=== PATIENT | male | born 1955 | race Caucasian/White ===

== ENCOUNTER 2018-05-21 18:08 | Emergency (ER) | payer OTHER, SELFPAY ==
[2018-05-21] VITALS (9 sets, daily range): BP systolic 113–132; BP diastolic 44–64; PULSE 75–83; RESP 14–21; TEMP 36.4–36.7; O2SAT 93–99; BMI 21.7
--- NOTE | 2018-05-21 18:39 | ED.WOUNDLAC ---
HPI - Wound/Laceration <JANNET Eldridge - Last Filed: 05/21/18 22:39> General Chief Complaint: Wound/Laceration Stated Complaint: States bone infection Time Seen by Provider: 05/21/18 18:14 Source: patient Mode of arrival: ambulatory Limitations: no limitations History of Present Illness HPI narrative: 63-year-old type 1 diabetic that is a nonsmoker here for complaint of a diabetic foot ulcer to his right foot. 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 He does have a foot ulcer to his right ball of foot medial aspect that has been healing well. He states that there is a new foot ulcer to his right foot to the lateral aspect started up few days ago and has worsened significantly over the past few days. He was sent here by his primary care provider for admission and IV antibiotics. He denies any fevers or chills. No trauma to the area. He does report decreased p.o. fluid intake today because he spent all day in bed. He denies any other concerns complaints at this time. Related Data Home Medications Medication Instructions Recorded Confirmed loratadine [Claritin] 10 mg PO QDAY #0 12/27/10 ASPIRIN (#ASPIRIN) 81 mg PO Q DAY #0 01/09/11 dorzolamide 1 drp OPHTH TID #0 02/15/17 Previous Rx's Medication Instructions Recorded FERROUS SULFATE (#IRON) 325 mg PO BID #180 10/04/11 Syringes: 3ml Luer-Nathalie Syringe 25g 0 syr #50 07/05/12 x 1 [ONETOUCH ULTRA TEST ] #200 06/05/16 albuterol sulfate [Proventil HFA] 2 puff INH Q4HP PRN #1 inh 07/19/16 verapamil 240 mg PO HS #90 tab 11/20/16 insulin glargine U-300 conc 0 u SC QDAY #3 u 12/26/16 [Toujeo SoloStar U-300 Insulin] fluticasone [Flonase Allergy 2 spray INTRANASAL QDAY #1 bot 01/03/17 Relief] quinapril 40 mg PO QDAY #90 tab 01/03/17 hydrochlorothiazide 12.5 mg PO QDAY #90 cap 01/16/17 sertraline [Zoloft] 100 mg PO QDAY #90 tab 01/16/17 azithromycin [Zithromax Z-Moses] 250 mg PO QDAY #6 tab 02/15/17 insulin lispro [Humalog U-100 0 unit SQ PRN #5 ml 03/09/17 Insulin] metformin 1,000 mg PO BIDCC #180 tabs 03/09/17 Allergies Allergy/AdvReac Type Severity Reaction Status Date / Time ciclopirox Allergy Mild RASH Verified 05/21/18 18:26 [From LOPROX ( OLAMINE)] travoprost [TRAVOPROST] Allergy Mild EYE Verified 05/21/18 18:26 IRRITATION Review of Systems <JANNET Eldridge - Last Filed: 05/21/18 22:39> Constitutional Denies chills, Denies fever(s), Denies lethargy and Denies weakness ENT Ears, Nose, Mouth, and Throat: Denies change in voice, Denies neck pain and Denies sore throat Cardiovascular Denies chest pain, Denies irregular heart rhythm, Denies lightheadedness, Denies palpitations, Denies dyspnea, Denies dyspnea on exertion and Denies orthopnea Respiratory Denies cough, Denies dyspnea, Denies dyspnea on exertion and Denies wheezing Gastrointestinal Gastrointestinal: Denies abdominal pain, Denies change in bowel habits, Denies diarrhea, Denies nausea and Denies vomiting Genitourinary Denies hematuria, Denies flank pain, Denies urinary incontinence and Denies urinary urgency Musculoskeletal Denies neck pain Comments: Right foot ulcer Integumentary/Breasts Denies pruritus, Denies erythema, Denies rash and Denies wounds Neurologic Denies confusion and Denies weakness Psychiatric Denies anxiety, Denies confusion, Denies depression, Denies homicidal ideation and Denies suicidal ideation Endocrine Denies palpitations Hematologic/Lymphatic Denies easy bruising Allergic/Immunologic Denies wheezing Exam <JANNET Eldridge - Last Filed: 05/21/18 22:39> Initial Vital Signs Initial Vital Signs: Vital Signs Temperature 97.5 F L 05/21/18 18:26 Pulse Rate 79 05/21/18 18:26 Respiratory Rate 16 05/21/18 18:26 Blood Pressure 119/64 05/21/18 18:26 Pulse Oximetry 99 05/21/18 18:26 Const General: cooperative and well developed Nutritional Appearance: well nourished Orientation: alert, awake, oriented x3 and not confused HENMT Mouth: oral mucosae normal and moist mucous membranes Eyes Conjunctivae: conjunctivae normal Sclera: sclerae normal Pupils: PERRL EOM: EOM intact bilaterally Resp Effort & Inspection: normal respiratory effort, able to speak in complete sentences, no respiratory distress and no use of accessory muscles Auscultation: clear to auscultation bilaterally, no rales, no rhonchi and no wheezes Cardio Rate: regular rate Rhythm: regular rhythm Heart Sounds: no click, no gallops, no murmurs and no rubs GI Inspection: non-distended Palpation: soft, no hepatosplenomegaly, No guarding, No pulsatile mass and No tender Auscultation: normal bowel sounds General: No CVA tenderness Skin General: no rashes or lesions noted, No jaundice and No petechiae Neuro General: alert, oriented x3, gait normal and no focal motor deficits Speech: speech normal Extrem Other: 3 cm foot ulcer to the medial aspect of the right foot on the ball does not appear to be acute and does appear to be healing well. 3 cm foot ulcer to the lateral aspect of the ball of foot to the right foot. Positive redness to the surrounding area. Decreased sensation to the distal right foot not new finding. Distal cap refill less than 2 sec. Distal pulses are intact. Full range of motion of the right foot. <Silvio Villegas DO - Last Filed: 05/22/18 01:24> Initial Vital Signs Initial Vital Signs: Vital Signs Temperature 97.5 F L 05/21/18 18:26 Pulse Rate 79 05/21/18 18:26 Respiratory Rate 16 05/21/18 18:26 Blood Pressure 119/64 05/21/18 18:26 Pulse Oximetry 99 05/21/18 18:26 Course <JANNET Eldridge - Last Filed: 05/21/18 22:39> Orders Ordered: ED Orders 05/21/18 19:02 XR foot RT min 3V Stat 05/21/18 19:25 Blood Culture Stat Complete Blood Count AUTO DIFF Stat Comprehensive Metabolic Panel Stat Lactate (Lactic Acid) Stat Procalcitonin Stat 05/21/18 20:13 Wound Culture and Gram Stain Stat 05/21/18 20:16 Arterial Blood Gas Stat EKG-12 Lead Stat 05/21/18 20:27 US abdomen complete Stat 05/21/18 22:40 Comprehensive Metabolic Panel Stat Lactate 4HR (Lactic Acid Rflx) Stat Lipase Stat 05/21/18 22:50 Urine Microscopic Stat Sodium Chloride (Normal Saline 0.9%) 177 mls @ 750 mls/hr IV BOLUS PRN PRN Reason: Fluid replacement Last Infusion: 05/21/18 23:57 Dose: 0 mls/hr Admin: 05/21/18 23:38 Dose: 750 mls/hr Sodium Chloride (Normal Saline 0.9%) 1,000 mls @ 125 mls/hr IV CONT SHERRY Last Admin: 05/22/18 00:36 Dose: 125 mls/hr Discontinued Medications Vancomycin HCl 1,750 mg/ (Sodium Chloride) 500 mls @ 333.333 mls/hr IV NOW ONE Stop: 05/21/18 20:02 Last Infusion: 05/21/18 22:15 Dose: 0 mls/hr Admin: 05/21/18 20:25 Dose: 333.333 mls/hr Sodium Chloride (Normal Saline 0.9%) 1,000 mls @ 1,000 mls/hr IV BOLUS ONE Stop: 05/21/18 21:15 Last Infusion: 05/21/18 22:00 Dose: 0 mls/hr Admin: 05/21/18 20:25 Dose: 1,000 mls/hr Sodium Chloride (Normal Saline 0.9%) 1,000 mls @ 1,000 mls/hr IV BOLUS ONE Stop: 05/21/18 22:30 Last Infusion: 05/21/18 23:03 Dose: 0 mls/hr Admin: 05/21/18 22:01 Dose: 1,000 mls/hr Sodium Chloride (Normal Saline 0.9%) 2,177.25 mls @ 725.75 mls/hr 30 ml/kg infuse over 3 hr (2177.25 ml) IV NOW ONE Stop: 05/22/18 00:35 Last Admin: 05/21/18 23:37 Dose: Ampicillin Sodium/Sulbactam (Sodium 3 gm/ Sodium Chloride) 100 mls @ 100 mls/hr IV NOW ONE Stop: 05/21/18 21:49 Last Infusion: 05/21/18 23:35 Dose: 0 mls/hr Admin: 05/21/18 22:30 Dose: 100 mls/hr Piperacillin/Tazobactam/Dextrose (Zosyn) 3.375 gm in 50 mls @ 100 mls/hr IV NOW ONE Stop: 05/22/18 00:36 Last Infusion: 05/22/18 01:03 Dose: 0 mls/hr Admin: 05/22/18 00:32 Dose: 100 mls/hr Insulin Human Regular (Humulin R) 7 unit IV NOW ONE Stop: 05/21/18 20:14 Last Admin: 05/21/18 22:14 Dose: Not Given Vital Signs - 8 hr 05/21/18 18:26 05/21/18 20:29 05/21/18 21:10 Temperature 97.5 F L Pulse Rate 79 83 83 Respiratory Rate 16 21 16 Blood Pressure 119/64 Blood Pressure [Left Arm] 122/44 L 129/46 L Pulse Oximetry 99 99 98 05/21/18 21:30 05/21/18 22:02 05/21/18 22:30 Temperature Pulse Rate 76 75 77 Respiratory Rate 14 16 14 Blood Pressure Blood Pressure [Left Arm] 132/53 L 113/58 L 132/50 L Pulse Oximetry 96 97 96 05/21/18 23:00 05/21/18 23:14 05/21/18 23:30 Temperature 98.0 F Pulse Rate 78 78 Respiratory Rate 17 15 Blood Pressure Blood Pressure [Left Arm] 132/45 L 125/44 L Pulse Oximetry 96 93 05/22/18 00:00 05/22/18 01:03 Temperature Pulse Rate 78 78 Respiratory Rate 12 14 Blood Pressure 124/50 L Blood Pressure [Left Arm] 120/49 L Pulse Oximetry 93 96 <Silvio Villegas, DO - Last Filed: 05/22/18 01:24> Orders Ordered: ED Orders 05/21/18 19:02 XR foot RT min 3V Stat 05/21/18 19:25 Blood Culture Stat Complete Blood Count AUTO DIFF Stat Comprehensive Metabolic Panel Stat Lactate (Lactic Acid) Stat Procalcitonin Stat 05/21/18 20:13 Wound Culture and Gram Stain Stat 05/21/18 20:16 Arterial Blood Gas Stat EKG-12 Lead Stat 05/21/18 20:27 US abdomen complete Stat 05/21/18 22:40 Comprehensive Metabolic Panel Stat Lactate 4HR (Lactic Acid Rflx) Stat Lipase Stat 05/21/18 22:50 Urine Microscopic Stat Sodium Chloride (Normal Saline 0.9%) 177 mls @ 750 mls/hr IV BOLUS PRN PRN Reason: Fluid replacement Last Infusion: 05/21/18 23:57 Dose: 0 mls/hr Admin: 05/21/18 23:38 Dose: 750 mls/hr Sodium Chloride (Normal Saline 0.9%) 1,000 mls @ 125 mls/hr IV CONT SHERRY Last Admin: 05/22/18 00:36 Dose: 125 mls/hr Discontinued Medications Vancomycin HCl 1,750 mg/ (Sodium Chloride) 500 mls @ 333.333 mls/hr IV NOW ONE Stop: 05/21/18 20:02 Last Infusion: 05/21/18 22:15 Dose: 0 mls/hr Admin: 05/21/18 20:25 Dose: 333.333 mls/hr Sodium Chloride (Normal Saline 0.9%) 1,000 mls @ 1,000 mls/hr IV BOLUS ONE Stop: 05/21/18 21:15 Last Infusion: 05/21/18 22:00 Dose: 0 mls/hr Admin: 05/21/18 20:25 Dose: 1,000 mls/hr Sodium Chloride (Normal Saline 0.9%) 1,000 mls @ 1,000 mls/hr IV BOLUS ONE Stop: 05/21/18 22:30 Last Infusion: 05/21/18 23:03 Dose: 0 mls/hr Admin: 05/21/18 22:01 Dose: 1,000 mls/hr Sodium Chloride (Normal Saline 0.9%) 2,177.25 mls @ 725.75 mls/hr 30 ml/kg infuse over 3 hr (2177.25 ml) IV NOW ONE Stop: 05/22/18 00:35 Last Admin: 05/21/18 23:37 Dose: Ampicillin Sodium/Sulbactam (Sodium 3 gm/ Sodium Chloride) 100 mls @ 100 mls/hr IV NOW ONE Stop: 05/21/18 21:49 Last Infusion: 05/21/18 23:35 Dose: 0 mls/hr Admin: 05/21/18 22:30 Dose: 100 mls/hr Piperacillin/Tazobactam/Dextrose (Zosyn) 3.375 gm in 50 mls @ 100 mls/hr IV NOW ONE Stop: 05/22/18 00:36 Last Infusion: 05/22/18 01:03 Dose: 0 mls/hr Admin: 05/22/18 00:32 Dose: 100 mls/hr Insulin Human Regular (Humulin R) 7 unit IV NOW ONE Stop: 05/21/18 20:14 Last Admin: 05/21/18 22:14 Dose: Not Given Reevaluation(s) Reevaluation #1: received in signout from CHEMA Copeland. Independent interview and exam by myself. Patient vitals remain stable. Hospitalist at our facility is not comfortable with keeping patient here given lack of access to GI. Initial calls for transfer are looking for an ICU with help of [facility] and no availability at [facility], [facility], [place], , [facility]. Patient turned over at this point. Patient received a few liters of fluid and antibiotics and repeat Lactate is markedly improved. Call back to [facility] whom state there is no bed available and that we can transfer wherever we find an appropriate bed, but they prefer [facility] or [facility]. Initial call is to [facility], but they are full. This is followed by call to [place]. Dr. Graves is happy to accept and recommends adding Zosyn. Vital Signs - 8 hr 05/21/18 18:26 05/21/18 20:29 05/21/18 21:10 Temperature 97.5 F L Pulse Rate 79 83 83 Respiratory Rate 16 21 16 Blood Pressure 119/64 Blood Pressure [Left Arm] 122/44 L 129/46 L Pulse Oximetry 99 99 98 05/21/18 21:30 05/21/18 22:02 05/21/18 22:30 Temperature Pulse Rate 76 75 77 Respiratory Rate 14 16 14 Blood Pressure Blood Pressure [Left Arm] 132/53 L 113/58 L 132/50 L Pulse Oximetry 96 97 96 05/21/18 23:00 05/21/18 23:14 05/21/18 23:30 Temperature 98.0 F Pulse Rate 78 78 Respiratory Rate 17 15 Blood Pressure Blood Pressure [Left Arm] 132/45 L 125/44 L Pulse Oximetry 96 93 05/22/18 00:00 05/22/18 01:03 Temperature Pulse Rate 78 78 Respiratory Rate 12 14 Blood Pressure 124/50 L Blood Pressure [Left Arm] 120/49 L Pulse Oximetry 93 96 MDM - Wound/Laceration <JANNET Eldridge - Last Filed: 05/21/18 22:39> Lab Data Result diagrams: 05/21/18 19:25 05/21/18 22:40 Lab Results 05/21/18 05/21/18 05/21/18 Range/Units 19:25 19:25 19:25 WBC 13.7 H (4.5-11.0) X10^3/uL RBC 3.56 L (4.5-5.9) X10^6/uL Hgb 10.6 L (13.5-17.5) g/dL Hct 32.5 L (41-53) % MCV 91.3 (80-100) fL MCH 29.7 (26-34) PG MCHC 32.5 (30-36) % RDW 15.0 H (11.6-14.8) % Plt Count 420 H (150-400) X10^3/uL Neut % (Auto) 92.0 H (50-75) % Lymph % (Auto) 5.4 L (25-40) % [place] % (Auto) 2.4 L (3-14) % Eos % (Auto) 0.0 L (2-4) % Baso % (Auto) 0.2 (0-2) % Neut # (Auto) 58326 H (2982-6369) /uL ABG pH (7.35-7.45) ABG pCO2 (35-45) mmHg ABG pO2 (80-100) mmHg ABG HCO3 (22-26) mmol/L ABG Total CO2 (21-31) mmol/L ABG O2 Saturation (95-100) % ABG Base Excess (-2-2) mmol/L FiO2 Sodium (137-145) mmol/L Potassium (3.4-5.1) mmol/L Chloride (98-107) mmol/L Carbon Dioxide (22-32) mmol/L BUN (9-20) mg/dL Creatinine (0.66-1.25) mg/dL Estimated GFR (>60) mL/min BUN/Creatinine Ratio (6-22) Glucose (80-110) mg/dL Lactate 5.4 H (0.7-2.1) mmol/L Calcium (8.4-10.2) mg/dL Total Bilirubin (0.2-1.3) mg/dL AST (17-59) IU/L ALT (21-72) IU/L Alkaline Phosphatase (38-126) U/L Total Protein (6.3-8.2) g/dL Albumin (3.5-5.0) g/dL Globulin (1.7-4.1) g/dL Albumin/Globulin Ratio (1.0-2.8) Lipase (23-300) U/L Procalcitonin 5.18 H (<0.5) ng/mL Urine RBC (0-5/HPF) Urine WBC (0-5/HPF) Amorphous Sediment Urine Bacteria (None) Hyaline Casts (None) Ur Culture Indicated? Micro UA Comment 05/21/18 05/21/18 05/21/18 Range/Units 19:25 20:16 22:40 WBC (4.5-11.0) X10^3/uL RBC (4.5-5.9) X10^6/uL Hgb (13.5-17.5) g/dL Hct (41-53) % MCV (80-100) fL MCH (26-34) PG MCHC (30-36) % RDW (11.6-14.8) % Plt Count (150-400) X10^3/uL Neut % (Auto) (50-75) % Lymph % (Auto) (25-40) % [place] % (Auto) (3-14) % Eos % (Auto) (2-4) % Baso % (Auto) (0-2) % Neut # (Auto) (9348-9157) /uL ABG pH 7.45 (7.35-7.45) ABG pCO2 30.1 L (35-45) mmHg ABG pO2 82 (80-100) mmHg ABG HCO3 21 L (22-26) mmol/L ABG Total CO2 22 (21-31) mmol/L ABG O2 Saturation 97 (95-100) % ABG Base Excess -3.0 L (-2-2) mmol/L FiO2 21 Sodium 130 L 132 L (137-145) mmol/L Potassium 6.1 H 5.4 H (3.4-5.1) mmol/L Chloride 91 L 97 L (98-107) mmol/L Carbon Dioxide 22 24 (22-32) mmol/L BUN 34 H 32 H (9-20) mg/dL Creatinine 1.80 H 1.50 H (0.66-1.25) mg/dL Estimated GFR 38.6 L 47.6 L (>60) mL/min BUN/Creatinine Ratio 18.9 21.3 (6-22) Glucose 394 H 223 H D (80-110) mg/dL Lactate (0.7-2.1) mmol/L Calcium 10.0 9.0 (8.4-10.2) mg/dL Total Bilirubin 0.4 0.2 (0.2-1.3) mg/dL AST 2185 H 1758 H (17-59) IU/L ALT 796 H 671 H (21-72) IU/L Alkaline Phosphatase 387 H 334 H (38-126) U/L Total Protein 7.1 6.4 (6.3-8.2) g/dL Albumin 3.9 3.4 L (3.5-5.0) g/dL Globulin 3.2 3.0 (1.7-4.1) g/dL Albumin/Globulin Ratio 1.2 1.1 (1.0-2.8) Lipase (23-300) U/L Procalcitonin (<0.5) ng/mL Urine RBC (0-5/HPF) Urine WBC (0-5/HPF) Amorphous Sediment Urine Bacteria (None) Hyaline Casts (None) Ur Culture Indicated? Micro UA Comment 05/21/18 05/21/18 05/21/18 Range/Units 22:40 22:40 22:50 WBC (4.5-11.0) X10^3/uL RBC (4.5-5.9) X10^6/uL Hgb (13.5-17.5) g/dL Hct (41-53) % MCV (80-100) fL MCH (26-34) PG MCHC (30-36) % RDW (11.6-14.8) % Plt Count (150-400) X10^3/uL Neut % (Auto) (50-75) % Lymph % (Auto) (25-40) % [place] % (Auto) (3-14) % Eos % (Auto) (2-4) % Baso % (Auto) (0-2) % Neut # (Auto) (8620-4541) /uL ABG pH (7.35-7.45) ABG pCO2 (35-45) mmHg ABG pO2 (80-100) mmHg ABG HCO3 (22-26) mmol/L ABG Total CO2 (21-31) mmol/L ABG O2 Saturation (95-100) % ABG Base Excess (-2-2) mmol/L FiO2 Sodium (137-145) mmol/L Potassium (3.4-5.1) mmol/L Chloride (98-107) mmol/L Carbon Dioxide (22-32) mmol/L BUN (9-20) mg/dL Creatinine (0.66-1.25) mg/dL Estimated GFR (>60) mL/min BUN/Creatinine Ratio (6-22) Glucose (80-110) mg/dL Lactate 2.4 H (0.7-2.1) mmol/L Calcium (8.4-10.2) mg/dL Total Bilirubin (0.2-1.3) mg/dL AST (17-59) IU/L ALT (21-72) IU/L Alkaline Phosphatase (38-126) U/L Total Protein (6.3-8.2) g/dL Albumin (3.5-5.0) g/dL Globulin (1.7-4.1) g/dL Albumin/Globulin Ratio (1.0-2.8) Lipase 848 H (23-300) U/L Procalcitonin (<0.5) ng/mL Urine RBC None seen (0-5/HPF) Urine WBC None seen (0-5/HPF) Amorphous Sediment 1+ Urine Bacteria None seen (None) Hyaline Casts 0-1/lpf (None) Ur Culture Indicated? Cult not indicated Micro UA Comment Not Reportable Imaging Data Right foot : Radiologist's impression: [address] [place] [id number] XRay Report Signed Patient: Ming Parry MMR#: [id number] : 7Acct:[id number] Age/Sex: 63 / MDate of Service: 05/21/18 Loc: ED Accession Number: [id number] Procedure: XR foot RT min 3V Ordering Provider: Wayne Copeland PROCEDURE: XR FOOT RT MIN 3V INDICATIONS: Diabetic ulcers to the lateral and medial aspect ball R foot TECHNIQUE: 3 views of the foot were acquired. COMPARISON: [facility], CR, FOOT 3V LEFT, 09/19/2016, 10:04. FINDINGS: Bones: Osteoarthritic changes throughout focal joints are seen. No acute fracture or dislocation. Cortical irregularity involving the lateral aspect of fifth proximal phalangeal base is seen suspicious for osteomyelitis in this area. Well-corticated cortical defect involving lateral aspect of the second metatarsal head is seen most likely represent chronic erosion and is unlikely to represent acute osteomyelitis. No suspicious bony lesions. Soft tissues: Ulceration overlying plantar and lateral aspect of fifth MTP joint is seen. No tibiotalar joint effusion. Achilles tendon appears normal. IMPRESSION: Ulceration over lateral and plantar aspect of fifth MTP joint with cortical irregularity involving fifth proximal phalangeal base suggestive of osteomyelitis in this area. Chronic appearing erosive changes involving lateral aspect of second metatarsal head. Forefoot joint osteoarthritis. Dictated by: John Martinez M.D. on 05/21/2018 at 19:37 Approved by: John Martinez M.D. on 05/21/2018 at 19:41 US - abdomen: Radiologist's impression: [place] [address] Ultrasound Report Signed Patient: Ming Parry [facility]#: [id number] : 7Acct:[id number] Age/Sex: 63 / MDate of Service: 05/21/18 Loc: ED Accession Number: [id number] Procedure: US abdomen complete Ordering Provider: Wayne Copeland PROCEDURE: US ABDOMEN COMPLETE INDICATIONS: ELEVATED LIVER ENZYMES TECHNIQUE: Real-time scanning was performed of the abdominal and retroperitoneal organs, with image documentation. COMPARISON: None. FINDINGS: Liver: Liver measures 19.7 cm seen length and is homogeneous in echotexture. Gallbladder: No gallstone is seen. No gross sonographic Cohen sign. Thickened gallbladder wall measures 5.1 mm in thickness. Pericholecystic fluid is also noted. Biliary ducts: Intrahepatic bile ducts are non-dilated. Extrahepatic bile duct caliber measures 4.2 mm. Normal is 6-7 mm or less in diameter, or 10 mm or less post-cholecystectomy. Pancreas: Visualized portions of the pancreas are sonographically normal. Spleen: Spleen is normal in size and homogeneous in echotexture. Kidneys: Kidneys are normal in size and echotexture. Right kidney measures 11.8 cm long; left kidney measures 11.4 cm long. No hydronephrosis or nephrolithiasis. No solid masses. Aorta: Visualized aorta is normal in caliber at less than 3 cm. Iliacs: Proximal common iliac arteries are normal in caliber at less than 2.5 cm. IVC: Intrahepatic inferior vena cava is patent. Miscellaneous: No free abdominal fluid. IMPRESSION: 1. Mild gallbladder wall thickening with pericholecystic fluid. No definite sonographic Cohen sign is seen. No gallstone or sludge material is noted. Finding could represent acalculus cholecystitis. 2. Mild hepatomegaly. No discrete hepatic lesion. No biliary ductal dilatation. Normal liver parenchymal echotexture. Dictated by: John Martinez M.D. on 05/21/2018 at 21:08 Approved by: John Martinez M.D. on 05/21/2018 at 21:10 ECG Data Interpretation: EKG shows normal sinus rhythm with heart block. No ST elevation or depression. No ectopy. Ventricular rate is 72. QRS duration 96. QTC of 438 MDM Narrative Medical decision making narrative: X-ray the right foot was obtained and shows findings concerning for starting osteomyelitis. Culture of the ulcer to the right foot was obtained and is pending. Blood cultures were obtained and are pending. CBC shows elevated white count and neutrophils. Chem panel shows hyperkalemia at 6.1. Sodium at 1:30 a.m. chloride at 91. Also shows a elevated creatinine of 1.8 and GFR 38.6. Glucose was 394. Procalcitonin was elevated At 5.18 lactic acid was elevated at 5.4. Patient did not have any complaint of abdominal pain. Patient was reassessed about abdominal pain and he states he did have abdominal pain earlier today but after he had a bowel movement his abdominal pain was resolved he states that the dominant pain was to the lower abdomen. Ultrasound of the right upper quadrant was obtained and shows findings consistent with acalculous cholecystitis with normal common bile duct. He was started on vancomycin and also Unasyn. Blood cultures and wound culture is pending. ABG was obtained shows his pH at 7.452. DKA is not appreciated at this time. He was given insulin in the emergency room. His blood sugar dropped to to 250. He was given a 30 mL/kilogram of fluid bolus. [facility] a billing him they did not have beds available. Currently awaiting a call from a [facility] bed. Due to change of shift patient was turned over to Dr. Villegas <Silvio Villegas, DO - Last Filed: 05/22/18 01:24> Lab Data Lab Results 05/21/18 05/21/18 05/21/18 Range/Units 19:25 19:25 19:25 WBC 13.7 H (4.5-11.0) X10^3/uL RBC 3.56 L (4.5-5.9) X10^6/uL Hgb 10.6 L (13.5-17.5) g/dL Hct 32.5 L (41-53) % MCV 91.3 (80-100) fL MCH 29.7 (26-34) PG MCHC 32.5 (30-36) % RDW 15.0 H (11.6-14.8) % Plt Count 420 H (150-400) X10^3/uL Neut % (Auto) 92.0 H (50-75) % Lymph % (Auto) 5.4 L (25-40) % [place] % (Auto) 2.4 L (3-14) % Eos % (Auto) 0.0 L (2-4) % Baso % (Auto) 0.2 (0-2) % Neut # (Auto) 73336 H (2919-2889) /uL ABG pH (7.35-7.45) ABG pCO2 (35-45) mmHg ABG pO2 (80-100) mmHg ABG HCO3 (22-26) mmol/L ABG Total CO2 (21-31) mmol/L ABG O2 Saturation (95-100) % ABG Base Excess (-2-2) mmol/L FiO2 Sodium (137-145) mmol/L Potassium (3.4-5.1) mmol/L Chloride (98-107) mmol/L Carbon Dioxide (22-32) mmol/L BUN (9-20) mg/dL Creatinine (0.66-1.25) mg/dL Estimated GFR (>60) mL/min BUN/Creatinine Ratio (6-22) Glucose (80-110) mg/dL Lactate 5.4 H (0.7-2.1) mmol/L Calcium (8.4-10.2) mg/dL Total Bilirubin (0.2-1.3) mg/dL AST (17-59) IU/L ALT (21-72) IU/L Alkaline Phosphatase (38-126) U/L Total Protein (6.3-8.2) g/dL Albumin (3.5-5.0) g/dL Globulin (1.7-4.1) g/dL Albumin/Globulin Ratio (1.0-2.8) Lipase (23-300) U/L Procalcitonin 5.18 H (<0.5) ng/mL Urine RBC (0-5/HPF) Urine WBC (0-5/HPF) Amorphous Sediment Urine Bacteria (None) Hyaline Casts (None) Ur Culture Indicated? Micro UA Comment 05/21/18 05/21/18 05/21/18 Range/Units 19:25 20:16 22:40 WBC (4.5-11.0) X10^3/uL RBC (4.5-5.9) X10^6/uL Hgb (13.5-17.5) g/dL Hct (41-53) % MCV (80-100) fL MCH (26-34) PG MCHC (30-36) % RDW (11.6-14.8) % Plt Count (150-400) X10^3/uL Neut % (Auto) (50-75) % Lymph % (Auto) (25-40) % [place] % (Auto) (3-14) % Eos % (Auto) (2-4) % Baso % (Auto) (0-2) % Neut # (Auto) (4586-4933) /uL ABG pH 7.45 (7.35-7.45) ABG pCO2 30.1 L (35-45) mmHg ABG pO2 82 (80-100) mmHg ABG HCO3 21 L (22-26) mmol/L ABG Total CO2 22 (21-31) mmol/L ABG O2 Saturation 97 (95-100) % ABG Base Excess -3.0 L (-2-2) mmol/L FiO2 21 Sodium 130 L 132 L (137-145) mmol/L Potassium 6.1 H 5.4 H (3.4-5.1) mmol/L Chloride 91 L 97 L (98-107) mmol/L Carbon Dioxide 22 24 (22-32) mmol/L BUN 34 H 32 H (9-20) mg/dL Creatinine 1.80 H 1.50 H (0.66-1.25) mg/dL Estimated GFR 38.6 L 47.6 L (>60) mL/min BUN/Creatinine Ratio 18.9 21.3 (6-22) Glucose 394 H 223 H D (80-110) mg/dL Lactate (0.7-2.1) mmol/L Calcium 10.0 9.0 (8.4-10.2) mg/dL Total Bilirubin 0.4 0.2 (0.2-1.3) mg/dL AST 2185 H 1758 H (17-59) IU/L ALT 796 H 671 H (21-72) IU/L Alkaline Phosphatase 387 H 334 H (38-126) U/L Total Protein 7.1 6.4 (6.3-8.2) g/dL Albumin 3.9 3.4 L (3.5-5.0) g/dL Globulin 3.2 3.0 (1.7-4.1) g/dL Albumin/Globulin Ratio 1.2 1.1 (1.0-2.8) Lipase (23-300) U/L Procalcitonin (<0.5) ng/mL Urine RBC (0-5/HPF) Urine WBC (0-5/HPF) Amorphous Sediment Urine Bacteria (None) Hyaline Casts (None) Ur Culture Indicated? Micro UA Comment 05/21/18 05/21/18 05/21/18 Range/Units 22:40 22:40 22:50 WBC (4.5-11.0) X10^3/uL RBC (4.5-5.9) X10^6/uL Hgb (13.5-17.5) g/dL Hct (41-53) % MCV (80-100) fL MCH (26-34) PG MCHC (30-36) % RDW (11.6-14.8) % Plt Count (150-400) X10^3/uL Neut % (Auto) (50-75) % Lymph % (Auto) (25-40) % [place] % (Auto) (3-14) % Eos % (Auto) (2-4) % Baso % (Auto) (0-2) % Neut # (Auto) (3666-7716) /uL ABG pH (7.35-7.45) ABG pCO2 (35-45) mmHg ABG pO2 (80-100) mmHg ABG HCO3 (22-26) mmol/L ABG Total CO2 (21-31) mmol/L ABG O2 Saturation (95-100) % ABG Base Excess (-2-2) mmol/L FiO2 Sodium (137-145) mmol/L Potassium (3.4-5.1) mmol/L Chloride (98-107) mmol/L Carbon Dioxide (22-32) mmol/L BUN (9-20) mg/dL Creatinine (0.66-1.25) mg/dL Estimated GFR (>60) mL/min BUN/Creatinine Ratio (6-22) Glucose (80-110) mg/dL Lactate 2.4 H (0.7-2.1) mmol/L Calcium (8.4-10.2) mg/dL Total Bilirubin (0.2-1.3) mg/dL AST (17-59) IU/L ALT (21-72) IU/L Alkaline Phosphatase (38-126) U/L Total Protein (6.3-8.2) g/dL Albumin (3.5-5.0) g/dL Globulin (1.7-4.1) g/dL Albumin/Globulin Ratio (1.0-2.8) Lipase 848 H (23-300) U/L Procalcitonin (<0.5) ng/mL Urine RBC None seen (0-5/HPF) Urine WBC None seen (0-5/HPF) Amorphous Sediment 1+ Urine Bacteria None seen (None) Hyaline Casts 0-1/lpf (None) Ur Culture Indicated? Cult not indicated Micro UA Comment Not Reportable Discharge Plan Departure Patient Disposition: [facility] Clinical Impression: Acute acalculous cholecystitis, Diabetic foot ulcer, Osteomyelitis Interventions: ED Discharge Assessment Last Done: 05/22/18 01:03 Prescriptions: No Action loratadine [Claritin] 10 MG tablet 10 mg PO QDAY Qty: 0 RF: 0 ASPIRIN (#ASPIRIN) 81 mg PO Q DAY Qty: 0 RF: 0 FERROUS SULFATE (#IRON) 325 mg PO BID Qty: 180 RF: 1 Syringes: 3ml Luer-Nathalie Syringe 25g x 1 Qty: 50 RF: 0 [[email or web address] ULTRA TEST ] Qty: 200 RF: 1 albuterol sulfate [Proventil HFA] 90 MCG/PUFF HFA aerosol inhaler 2 puff INH Q4HP PRNQty: 1 RF: 2 verapamil 240 MG tablet extended release 240 mg PO HS Qty: 90 RF: 1 insulin glargine U-300 conc [Toujeo SoloStar U-300 Insulin] 300 UNIT/1 ML insulin pen SC QDAY Qty: 3 RF: 2 quinapril 40 MG tablet 40 mg PO QDAY Qty: 90 RF: 0 fluticasone [Flonase Allergy Relief] 9.9 ML spray,suspension 2 spray Intranasal QDAY Qty: 1 RF: 2 sertraline [Zoloft] 100 MG tablet 100 mg PO QDAY Qty: 90 RF: 1 hydrochlorothiazide 12.5 MG capsule 12.5 mg PO QDAY Qty: 90 RF: 1 dorzolamide 2 % drops 1 drp OPHTH TID Qty: 0 RF: 0 azithromycin [Zithromax Z-Moses] 250 MG tablet 250 mg PO QDAY Qty: 6 RF: 0 metformin 1,000 MG tablet 1,000 mg PO BIDCC Qty: 180 RF: 0 insulin lispro [Humalog U-100 Insulin] 100 UNIT/1 ML cartridge SQ PRN Qty: 5 RF: 1
--- NOTE | 2018-05-21 19:02 | DI.RAD.S_ITS ---
PROCEDURE: XR FOOT RT MIN 3V INDICATIONS: Diabetic ulcers to the lateral and medial aspect ball R foot TECHNIQUE: 3 views of the foot were acquired. COMPARISON: [facility], , FOOT 3V LEFT, 09/19/2016, 10:04. FINDINGS: Bones: Osteoarthritic changes throughout focal joints are seen. No acute fracture or dislocation. Cortical irregularity involving the lateral aspect of fifth proximal phalangeal base is seen suspicious for osteomyelitis in this area. Well-corticated cortical defect involving lateral aspect of the second metatarsal head is seen most likely represent chronic erosion and is unlikely to represent acute osteomyelitis. No suspicious bony lesions. Soft tissues: Ulceration overlying plantar and lateral aspect of fifth MTP joint is seen. No tibiotalar joint effusion. Achilles tendon appears normal. IMPRESSION: Ulceration over lateral and plantar aspect of fifth MTP joint with cortical irregularity involving fifth proximal phalangeal base suggestive of osteomyelitis in this area. Chronic appearing erosive changes involving lateral aspect of second metatarsal head. Forefoot joint osteoarthritis. Dictated by: John Martinez M.D. on 05/21/2018 at 19:37 Approved by: John Martinez M.D. on 05/21/2018 at 19:41
[2018-05-21 19:56] LABS: Lactate (Lactic Acid) 5.4 mmol/L (0.7-2.1)
[2018-05-21 20:03] LABS: Add Manual Diff / Slide Review NO; Basophils Percent Auto 0.2 % (0-2); Hematocrit 32.5 % (41-53); Hemoglobin 10.6 g/dL (13.5-17.5); Lymphocytes Percent Auto 5.4 % (25-40); Mean Corpuscular HGB Conc 32.5 % (30-36); Mean Corpuscular Hemoglobin 29.7 PG (26-34); Mean Corpuscular Volume 91.3 fL (80-100); Monocytes Percent Auto 2.4 % (3-14); Neutrophils Absolute Auto 12600 /uL (3000-5900); Platelet Count 420 X10^3/uL (150-400); Red Blood Cell Count 3.56 X10^6/uL (4.5-5.9); White Blood Cell Count 13.7 X10^3/uL (4.5-11.0)
[2018-05-21 20:06] LABS: Alanine Aminotransferase 796 IU/L (21-72); Albumin 3.9 g/dL (3.5-5.0); Albumin Globulin Ratio 1.2 (1.0-2.8); Alkaline Phosphatase 387 U/L (38-126); BUN Creatinine Ratio 18.9 (6-22); Bilirubin Total 0.4 mg/dL (0.2-1.3); Blood Urea Nitrogen 34 mg/dL (9-20); Carbon Dioxide 22 mmol/L (22-32); Chloride 91 mmol/L (98-107); Estimated Glomerular Filt Rate 38.6 mL/min (>60); Globulin 3.2 g/dL (1.7-4.1); Glucose 394 mg/dL (80-110); HEMOLYSIS < 15 (0-50); Sodium 130 mmol/L (137-145); Total Protein 7.1 g/dL (6.3-8.2)
[2018-05-21 20:08] LABS: Potassium 6.1 mmol/L (3.4-5.1)
[2018-05-21 20:25] LABS: Aspartate Aminotransferase 2185 IU/L (17-59)
[2018-05-21] MEDS: SODIUM CHLORIDE 0.9% 1,000 ML 1000 ML IV ×2 (20:25→22:01)
[2018-05-21] MEDS: VANCOMYCIN 1,750 MG in SODIUM CHLORIDE 0.9% 500 ML 333.333 ML IV (20:25)
--- NOTE | 2018-05-21 20:27 | DI.US.S_ITS ---
PROCEDURE: US ABDOMEN COMPLETE INDICATIONS: ELEVATED LIVER ENZYMES TECHNIQUE: Real-time scanning was performed of the abdominal and retroperitoneal organs, with image documentation. COMPARISON: None. FINDINGS: Liver: Liver measures 19.7 cm seen length and is homogeneous in echotexture. Gallbladder: No gallstone is seen. No gross sonographic Cohen sign. Thickened gallbladder wall measures 5.1 mm in thickness. Pericholecystic fluid is also noted. Biliary ducts: Intrahepatic bile ducts are non-dilated. Extrahepatic bile duct caliber measures 4.2 mm. Normal is 6-7 mm or less in diameter, or 10 mm or less post-cholecystectomy. Pancreas: Visualized portions of the pancreas are sonographically normal. Spleen: Spleen is normal in size and homogeneous in echotexture. Kidneys: Kidneys are normal in size and echotexture. Right kidney measures 11.8 cm long; left kidney measures 11.4 cm long. No hydronephrosis or nephrolithiasis. No solid masses. Aorta: Visualized aorta is normal in caliber at less than 3 cm. Iliacs: Proximal common iliac arteries are normal in caliber at less than 2.5 cm. IVC: Intrahepatic inferior vena cava is patent. Miscellaneous: No free abdominal fluid. IMPRESSION: 1. Mild gallbladder wall thickening with pericholecystic fluid. No definite sonographic Cohen sign is seen. No gallstone or sludge material is noted. Finding could represent acalculus cholecystitis. 2. Mild hepatomegaly. No discrete hepatic lesion. No biliary ductal dilatation. Normal liver parenchymal echotexture. Dictated by: John Martinez M.D. on 05/21/2018 at 21:08 Approved by: John Martinez M.D. on 05/21/2018 at 21:10
[2018-05-21 20:32] LABS: Procalcitonin 5.18 ng/mL (<0.5)
[2018-05-21 20:56] LABS: HCO3 ABG 21 mmol/L (22-26); Oxygen Saturation ABG 97 % (95-100); PCO2 ABG 30.1 mmHg (35-45); PO2 ABG 82 mmHg (80-100); TCO2 ABG 22 mmol/L (21-31); pH ABG 7.45 (7.35-7.45)
[2018-05-21 20:57] LABS: Fractionated Inspired Oxygen 21
[2018-05-21] MEDS: AMPICILLIN/SULBACTAM 3 GM 3 GM in SODIUM CHLORIDE 0.9% 100 ML IV (22:30)
[2018-05-21 23:02] LABS: Alanine Aminotransferase 671 IU/L (21-72); Albumin 3.4 g/dL (3.5-5.0); Albumin Globulin Ratio 1.1 (1.0-2.8); Alkaline Phosphatase 334 U/L (38-126); BUN Creatinine Ratio 21.3 (6-22); Bilirubin Total 0.2 mg/dL (0.2-1.3); Blood Urea Nitrogen 32 mg/dL (9-20); Carbon Dioxide 24 mmol/L (22-32); Chloride 97 mmol/L (98-107); Estimated Glomerular Filt Rate 47.6 mL/min (>60); Glucose 223 mg/dL (80-110); HEMOLYSIS < 15 (0-50); Sodium 132 mmol/L (137-145); Total Protein 6.4 g/dL (6.3-8.2)
[2018-05-21 23:03] LABS: Potassium 5.4 mmol/L (3.4-5.1)
[2018-05-21 23:23] LABS: Aspartate Aminotransferase 1758 IU/L (17-59)
[2018-05-21 23:32] LABS: Lipase 848 U/L (23-300)
[2018-05-21] MEDS: SODIUM CHLORIDE 0.9% 177 ML 750 ML IV (23:38)
[2018-05-21 23:45] LABS: Reflexed Lactate in 2 Hours Y
[2018-05-21 23:48] LABS: Lactate 2HR (Lactic Acid Rflx) 2.4 mmol/L (0.7-2.1)
[2018-05-21 23:54] LABS: Bacteria Urine None Seen; RBC Urine None Seen (0-5/HPF); WBC Urine None Seen (0-5/HPF)
[2018-05-22] VITALS: BP 120/49; PULSE 78; RESP 12; O2SAT 93
[2018-05-22 00:03] LABS: Amorphous Sediment Urine 1+; Culture Indicated Urine Cult Not Indicated; Hyaline Casts Urine 0-1/LPF
[2018-05-22] MEDS: PIPERACILLIN-TAZO 3.375 GM/50 ML FROZ.PIGGY IV (00:32)
[2018-05-22] MEDS: SODIUM CHLORIDE 0.9% 1,000 ML 125 ML IV (00:36)
[2018-05-22 01:03] VITALS: BP 124/50; PULSE 78; RESP 14; O2SAT 96
[2018-05-22 16:59] LABS: Enterococcus species Not Detected (Not Detect); Listeria monocytogenes Not Detected (Not Detect)
[2018-05-22 17:00] LABS: Acinetobacter baumannii Not Detected (Not Detect); Candida albicans Not Detected (Not Detect); Candida glabrata Not Detected (Not Detect); Candida krusei Not Detected (Not Detect); Candida parapsilosis Not Detected (Not Detect); Candida tropicalis Not Detected (Not Detect); E. coli Not Detected (Not Detect); Enterobacter cloacae complex Not Detected (Not Detect); Enterobacteriaceae species Not Detected (Not Detect); Haemophilus influenzae Not Detected (Not Detect); Methicillin-resistant gene Not Detected (Not Detect); Neisseria meningitidis Not Detected (Not Detect); Proteus species Not Detected (Not Detect); Pseudomonas aeruginosa Not Detected (Not Detect); Serratia marcescens Not Detected (Not Detect); Staphylococcus species Detected (Not Detect); Streptococcus agalactiae (Gr B Not Detected (Not Detect); Streptococcus pneumonia Not Detected (Not Detect); Streptococcus pyogenes (Gr A) Not Detected (Not Detect); Streptococcus species Not Detected (Not Detect)
--- NOTE | 2018-05-22 17:11 | PC.NURSE ---
1715 call from Lab with + blood culture results for staph. called [facility] and reported the results and told what amy he recieved here in the ED.
== END 2018-05-22 01:47 | disposition short-term general hospital (02) ==
PROVIDERS: Nurse Practitioner Family; Emergency Provider Emergency Medicine; Family Provider Family Medicine; PCP Family Medicine
DX: K81.0 Acute cholecystitis (principal); M86.9 Osteomyelitis, unspecified; E10.621 Type 1 diabetes mellitus with foot ulcer; L97.511 Non-pressure chronic ulcer of other part of right foot limited to breakdown of skin
CPT/HCPCS: 36415; 36591; 36600; 73630; 76700; 80053; 81003; 81015; 82805; 82962; 83605; 83690; 84145; 85025; 87040; 87070; 87075; 87077; 87150; 87186; 87205; 93005; 93010; 96361; 96365; 96367; 96368; 99285; J0295; J2543

== ENCOUNTER → 2019-02-28 07:35 | Outpatient (CLI) | payer OTHER, SELFPAY ==
--- NOTE | 2019-02-28 | DI.MRI.S_ITS ---
PROCEDURE: MR FOOT RT WO CON INDICATIONS: Pain in right toe(s) TECHNIQUE: Noncontrast sagittal T1 spin echo and T2 fast spin echo with fat saturation, long-axis T1 spin echo and T2 fast spin echo with fat saturation, short-axis T1 spin echo and T2 fast spin echo with fat saturation through the forefoot. COMPARISON: [facility], CR, XR FOOT RT MIN 3V, 05/21/2018, 19:11. FINDINGS: Image quality: Excellent. Bones and joints: Patient is status post prior amputation of right fifth toe at the level of the fifth metatarsal shaft. Extensive marrow edema involving fifth metatarsal shaft stump is seen. Subtle cortical irregularity at the stump is also noted concerning for osteomyelitis. There is also cortical disruption involving midshaft of fifth metatarsal stump concerning for nondisplaced pathologic fracture. No other area of abnormal marrow signal. Osteoarthritic changes throughout MTP joints and interphalangeal joints are seen. No intraosseous lesions. Soft tissues: Soft tissue edema and ulceration over plantar and lateral aspect of fifth metatarsal stump is seen, consistent with cellulitis. No drainable abscess collection is identified. Visualized flexor and extensor tendons appear intact, without tenosynovitis. The distal insertions of the peroneus brevis and longus tendons appear intact. The principal Lisfranc ligament appears intact. No soft tissue ganglion cysts or bursal fluid collections. Sagittal images demonstrate no evidence for plantar plate tears. IMPRESSION: 1. Patient is status post fifth toe amputation at the level of mid to distal fifth metatarsal shaft. 2. Ulceration involving the plantar lateral aspect of fifth metatarsal shaft with extensive cellulitis. No abscess collection is seen. Marrow edema and subtle cortical erosion involving fifth metatarsal stump concerning for osteomyelitis. Suggestion of nondisplaced pathologic fracture involving distal shaft of the fifth metatarsal stump. Dictated by: John Martinez M.D. on 02/28/2019 at 9:57 Approved by: John Martinez M.D. on 02/28/2019 at 10:11
== END ==
PROVIDERS: Family Provider Family Medicine; PCP Family Medicine; Visit Provider Family Medicine
DX: M79.674 Pain in right toe(s) (principal); E10.621 Type 1 diabetes mellitus with foot ulcer; L97.512 Non-pressure chronic ulcer of other part of right foot with fat layer exposed; Z89.421 Acquired absence of other right toe(s)
CPT/HCPCS: 73718

== ENCOUNTER → 2020-12-02 10:56 | Outpatient (CLI) | payer OTHER, SELFPAY | PROVIDERS: Family Provider Family Medicine; PCP Family Medicine; Referring Provider Family Medicine; Visit Provider Family Medicine | DX: E10.621 Type 1 diabetes mellitus with foot ulcer (principal); L97.511 Non-pressure chronic ulcer of other part of right foot limited to breakdown of skin; T87.89 Other complications of amputation stump; L97.422 Non-pressure chronic ulcer of left heel and midfoot with fat layer exposed; E10.40 Type 1 diabetes mellitus with diabetic neuropathy, unspecified; Z87.891 Personal history of nicotine dependence; L97.421 Non-pressure chronic ulcer of left heel and midfoot limited to breakdown of skin | CPT/HCPCS: 11042; 73650; 87070; 87075; 87077; 87147; 87186; 87205; 99204; 99214 ==

== ENCOUNTER → 2020-12-02 13:53 | Outpatient (CLI) | payer OTHER, MEDICAID, SELFPAY ==
--- NOTE | 2020-12-02 13:59 | DI.RAD.S_ITS ---
PROCEDURE: XR CALCANEOUS LT MIN 2V INDICATIONS: left heel wound TECHNIQUE: Two views of the calcaneus were acquired. COMPARISON: None. FINDINGS: Bones: No fractures or dislocations. No suspicious bony lesions. Soft tissues: No suspicious calcifications. Achilles tendon appears normal. IMPRESSION: Normal calcaneus. No sign of osteomyelitis. Dictated by: Yoel Alston M.D. on 12/02/2020 at 14:49 Approved by: Yoel Alston M.D. on 12/02/2020 at 14:50
== END ==
PROVIDERS: Family Provider Family Medicine; PCP Family Medicine; Referring Provider Family Medicine; Visit Provider Family Medicine
DX: E10.621 Type 1 diabetes mellitus with foot ulcer (principal); L97.421 Non-pressure chronic ulcer of left heel and midfoot limited to breakdown of skin
CPT/HCPCS: 73650

== ENCOUNTER → 2020-12-09 09:40 | Outpatient (CLI) | payer OTHER, MEDICAID, SELFPAY | PROVIDERS: Family Provider Family Medicine; PCP Family Medicine; Referring Provider Family Medicine; Visit Provider Nurse Practitioner Family | DX: E10.621 Type 1 diabetes mellitus with foot ulcer (principal); L97.511 Non-pressure chronic ulcer of other part of right foot limited to breakdown of skin; L97.422 Non-pressure chronic ulcer of left heel and midfoot with fat layer exposed; E10.40 Type 1 diabetes mellitus with diabetic neuropathy, unspecified; T87.89 Other complications of amputation stump | CPT/HCPCS: 11042; 97602; 99214 ==

== ENCOUNTER → 2020-12-23 08:59 | Outpatient (CLI) | payer OTHER, MEDICAID, SELFPAY | PROVIDERS: Family Provider Family Medicine; PCP Family Medicine; Referring Provider Family Medicine; Visit Provider Family Medicine | DX: E10.621 Type 1 diabetes mellitus with foot ulcer (principal); L97.511 Non-pressure chronic ulcer of other part of right foot limited to breakdown of skin; L97.421 Non-pressure chronic ulcer of left heel and midfoot limited to breakdown of skin; E10.40 Type 1 diabetes mellitus with diabetic neuropathy, unspecified; L08.9 Local infection of the skin and subcutaneous tissue, unspecified; B95.62 Methicillin resistant Staphylococcus aureus infection as the cause of diseases classified elsewhere | CPT/HCPCS: 11042; 36415; 80053; 83036; 85025; 85651; 86140; 87070; 87075; 87077; 87147; 87186; 87205; 99214 ==

== ENCOUNTER → 2020-12-23 10:37 | Outpatient (CLI) | payer OTHER, MEDICAID, SELFPAY ==
[2020-12-23 11:44] LABS: Add Manual Diff / Slide Review NO; Basophils Absolute Auto 0 /uL (0-100); Basophils Percent Auto 0.5 % (0-2); Eosinophils Absolute Auto 100 /uL (0-450); Eosinophils Percent Auto 0.9 % (2-4); Hematocrit 33.8 % (41-53); Hemoglobin 11.4 g/dL (13.5-17.5); Lymphocytes Absolute Auto 1100 /uL (1100-4500); Lymphocytes Percent Auto 20.3 % (25-40); Mean Corpuscular HGB Conc 33.6 % (30-36); Mean Corpuscular Volume 89.3 fL (80-100); Monocytes Absolute Auto 400 /uL (0-900); Monocytes Percent Auto 7.8 % (3-14); Neutrophils Absolute Auto 3800 /uL (1500-7000); Neutrophils Percent Auto 70.5 % (50-75); Platelet Count 370 X10^3/uL (150-400); Red Blood Cell Count 3.79 X10^6/uL (4.5-5.9); Red Cell Distribution Width 16.8 % (11.6-14.8); White Blood Cell Count 5.4 X10^3/uL (4.5-11.0)
[2020-12-23 12:03] LABS: Alanine Aminotransferase 30 IU/L (<50); Albumin 3.8 g/dL (3.5-5.0); Albumin Globulin Ratio 1.3 (1.0-2.8); Alkaline Phosphatase 63 U/L (38-126); Aspartate Aminotransferase 34 IU/L (17-59); BUN Creatinine Ratio 32.3 (6-22); Bilirubin Total 0.2 mg/dL (0.2-1.3); Blood Urea Nitrogen 32 mg/dL (9-20); C-Reactive Protein Quant < 0.5 mg/dL (<1.0); Carbon Dioxide 24 mmol/L (22-32); Chloride 99 mmol/L (98-107); Estimated Glomerular Filt Rate > 60.0 mL/min (>60); Globulin 2.9 g/dL (1.7-4.1); Glucose 203 mg/dL (80-110); HEMOLYSIS 28 (0-50); Hemoglobin A1C% w Est Avg Glu 8.5 % (4.0-6.0); Potassium 5.3 mmol/L (3.4-5.1); Sodium 132 mmol/L (137-145); Total Protein 6.7 g/dL (6.3-8.2)
[2020-12-23 12:05] LABS: Erythrocyte Sedimentation Rate 14 MM/HR (0-15)
== END ==
PROVIDERS: Family Provider Family Medicine; PCP Family Medicine; Referring Provider Family Medicine; Visit Provider Family Medicine
DX: E10.621 Type 1 diabetes mellitus with foot ulcer (principal); L97.421 Non-pressure chronic ulcer of left heel and midfoot limited to breakdown of skin
CPT/HCPCS: 36415; 80053; 83036; 85025; 85651; 86140

== ENCOUNTER → 2020-12-30 06:55 | Outpatient (CLI) | payer OTHER, MEDICAID, SELFPAY ==
--- NOTE | 2020-12-30 | DI.MRI.S_ITS ---
PROCEDURE: MR ANKLE LT WO/W CON INDICATIONS: Non-pressure chronic ulcer of left heel TECHNIQUE: Noncontrast sagittal T1 spin echo and T2 fast spin echo with fat saturation, axial proton density fast spin echo and T2 fast spin echo with fat saturation, axial T1 spin echo with fat saturation, coronal T1 spin echo and T2 fast spin echo with fat saturation through the ankle/hindfoot. Post-contrast axial, coronal, and sagittal T1 spin echo with fat saturation through the ankle/hindfoot. COMPARISON: [facility], MR, MR FOOT RT WO CON, 02/28/2019, 8:00. [facility], CR, XR CALCANEOUS LT MIN 2V, 12/02/2020, 13:55. FINDINGS: Image quality: Excellent. Bones and joints: No bone marrow contusions or fractures. No focal osseous edema or enhancement or cortical destruction to suggest osteomyelitis. No hindfoot coalitions. No osteochondral injuries of the talar dome. Minimal degenerative spurring is seen at the tibial plafond and and at the dorsal aspect of the talonavicular articulation. No suspicious enhancing soft tissue mass. Medial structures: The deep and superficial layers of the deltoid ligament appear intact. The spring ligament components are intact. The posterior tibialis, flexor digitorum longus, and flexor hallucis longus tendons are intact. The posterior tibial neurovascular bundle appears normal within the tarsal tunnel, without extrinsic mass effect. Lateral structures: The anterior talofibular, calcaneofibular, and posterior talofibular ligaments appear intact. The anterior and posterior tibiofibular ligaments appear intact. There is mild tendinosis and focal tenosynovitis of the extensor peroneus brevis tendon at the level of the fibular tip. The sinus tarsi demonstrates normal fatty signal, without edema, fibrosis, or cyst formation. Anterior structures: The tibialis anterior, extensor hallucis longus, and extensor digitorum longus tendons appear intact. The dorsal talonavicular ligament appears intact. Posterior and plantar structures: Achilles tendon is intact. Medial and lateral bands of the plantar fascia are of normal thickness. There is diffuse moderate to severe fatty infiltration of the intrinsic foot musculature as well as the musculature in the lower leg, compatible with chronic denervation changes. Soft tissue thickening and overlying dressing are seen at the posterior plantar heel with mild subcutaneous edema but no focal fluid collection. IMPRESSION: 1. Skin thickening and mild subcutaneous edema at the posterior heel is compatible with the provided clinical history of a wound in this location. There are no signs of abscess formation or osteomyelitis. 2. Mild peroneus brevis tendinosis and tenosynovitis. 3. Diffuse fatty infiltration of the intrinsic foot musculature is most likely secondary to chronic denervation changes. Dictated by: Rajesh Mckenzie M.D. on 12/30/2020 at 10:37 Approved by: Rajesh Mckenzie M.D. on 12/30/2020 at 10:54
== END ==
PROVIDERS: Family Provider Family Medicine; PCP Family Medicine; Referring Provider Family Medicine; Visit Provider Family Medicine
DX: E10.621 Type 1 diabetes mellitus with foot ulcer (principal); L97.421 Non-pressure chronic ulcer of left heel and midfoot limited to breakdown of skin; M65.872 Other synovitis and tenosynovitis, left ankle and foot
CPT/HCPCS: 73723

== ENCOUNTER → 2020-12-30 12:32 | Outpatient (CLI) | payer OTHER, MEDICAID, SELFPAY | PROVIDERS: Family Provider Family Medicine; PCP Family Medicine; Referring Provider Family Medicine; Visit Provider Family Medicine | DX: E10.621 Type 1 diabetes mellitus with foot ulcer (principal); L97.511 Non-pressure chronic ulcer of other part of right foot limited to breakdown of skin; L97.421 Non-pressure chronic ulcer of left heel and midfoot limited to breakdown of skin; E10.40 Type 1 diabetes mellitus with diabetic neuropathy, unspecified; M65.872 Other synovitis and tenosynovitis, left ankle and foot | CPT/HCPCS: 11042; 73723 ==

== ENCOUNTER → 2021-01-06 10:20 | Outpatient (CLI) | payer OTHER, MEDICAID, SELFPAY | PROVIDERS: Family Provider Family Medicine; PCP Family Medicine; Referring Provider Family Medicine; Visit Provider Family Medicine | DX: E10.621 Type 1 diabetes mellitus with foot ulcer (principal); L97.421 Non-pressure chronic ulcer of left heel and midfoot limited to breakdown of skin; E10.628 Type 1 diabetes mellitus with other skin complications; L84 Corns and callosities; G90.09 Other idiopathic peripheral autonomic neuropathy; L08.9 Local infection of the skin and subcutaneous tissue, unspecified | CPT/HCPCS: 87070; 87075; 87077; 87186; 87205; 99214 ==

== ENCOUNTER → 2021-01-13 09:36 | Outpatient (CLI) | payer OTHER, MEDICAID, SELFPAY | PROVIDERS: Family Provider Family Medicine; PCP Family Medicine; Referring Provider Family Medicine; Visit Provider Family Medicine | DX: E10.621 Type 1 diabetes mellitus with foot ulcer (principal); L97.421 Non-pressure chronic ulcer of left heel and midfoot limited to breakdown of skin; L08.9 Local infection of the skin and subcutaneous tissue, unspecified; E10.40 Type 1 diabetes mellitus with diabetic neuropathy, unspecified | CPT/HCPCS: 99213; 99214 ==

== ENCOUNTER → 2021-01-20 09:36 | Outpatient (CLI) | payer OTHER, MEDICAID, SELFPAY | PROVIDERS: Family Provider Family Medicine; PCP Family Medicine; Referring Provider Family Medicine; Visit Provider Family Medicine | DX: E10.621 Type 1 diabetes mellitus with foot ulcer (principal); L97.421 Non-pressure chronic ulcer of left heel and midfoot limited to breakdown of skin; E10.40 Type 1 diabetes mellitus with diabetic neuropathy, unspecified; L08.9 Local infection of the skin and subcutaneous tissue, unspecified | CPT/HCPCS: 87070; 87075; 87077; 87186; 87205; 97597; 99214 ==

== ENCOUNTER → 2021-01-27 11:31 | Outpatient (CLI) | payer OTHER, MEDICAID, SELFPAY | PROVIDERS: Family Provider Family Medicine; PCP Family Medicine; Referring Provider Family Medicine; Visit Provider Family Medicine | DX: E11.621 Type 2 diabetes mellitus with foot ulcer (principal); L97.421 Non-pressure chronic ulcer of left heel and midfoot limited to breakdown of skin | CPT/HCPCS: 99213 ==

== ENCOUNTER → 2021-02-03 10:22 | Outpatient (CLI) | payer OTHER, MEDICAID, SELFPAY | PROVIDERS: Family Provider Family Medicine; PCP Family Medicine; Referring Provider Family Medicine; Visit Provider Family Medicine | DX: E10.621 Type 1 diabetes mellitus with foot ulcer (principal); L97.421 Non-pressure chronic ulcer of left heel and midfoot limited to breakdown of skin; E10.40 Type 1 diabetes mellitus with diabetic neuropathy, unspecified; L84 Corns and callosities | CPT/HCPCS: 97597; 99212 ==

== ENCOUNTER → 2021-02-10 09:49 | Outpatient (CLI) | payer OTHER, MEDICAID, SELFPAY | PROVIDERS: Family Provider Family Medicine; PCP Family Medicine; Referring Provider Family Medicine; Visit Provider Family Medicine | DX: E10.621 Type 1 diabetes mellitus with foot ulcer (principal); L97.421 Non-pressure chronic ulcer of left heel and midfoot limited to breakdown of skin; E10.40 Type 1 diabetes mellitus with diabetic neuropathy, unspecified; L84 Corns and callosities | CPT/HCPCS: 97597 ==

== ENCOUNTER → 2021-02-17 10:04 | Outpatient (CLI) | payer OTHER, MEDICAID, SELFPAY | PROVIDERS: Family Provider Family Medicine; PCP Family Medicine; Referring Provider Family Medicine; Visit Provider Family Medicine | DX: E10.621 Type 1 diabetes mellitus with foot ulcer (principal); L97.421 Non-pressure chronic ulcer of left heel and midfoot limited to breakdown of skin; L84 Corns and callosities | CPT/HCPCS: 87070; 87075; 87205; 99213 ==

== ENCOUNTER → 2021-02-24 08:38 | Outpatient (CLI) | payer OTHER, MEDICAID, SELFPAY | PROVIDERS: Family Provider Family Medicine; PCP Family Medicine; Referring Provider Family Medicine; Visit Provider Family Medicine | DX: E10.621 Type 1 diabetes mellitus with foot ulcer (principal); L97.421 Non-pressure chronic ulcer of left heel and midfoot limited to breakdown of skin; L84 Corns and callosities | CPT/HCPCS: 97597 ==

== ENCOUNTER → 2021-03-01 14:36 | Outpatient (CLI) | payer OTHER, MEDICAID, SELFPAY | PROVIDERS: Family Provider Family Medicine; PCP Family Medicine; Referring Provider Family Medicine; Visit Provider Family Medicine | DX: E11.621 Type 2 diabetes mellitus with foot ulcer (principal); L97.421 Non-pressure chronic ulcer of left heel and midfoot limited to breakdown of skin | CPT/HCPCS: 29445 ==

== ENCOUNTER → 2021-03-03 09:19 | Outpatient (CLI) | payer OTHER, MEDICAID, SELFPAY | PROVIDERS: Family Provider Family Medicine; PCP Family Medicine; Referring Provider Family Medicine; Visit Provider Family Medicine | DX: E11.621 Type 2 diabetes mellitus with foot ulcer (principal); L97.421 Non-pressure chronic ulcer of left heel and midfoot limited to breakdown of skin | CPT/HCPCS: 29445 ==

== ENCOUNTER → 2021-03-10 08:46 | Outpatient (CLI) | payer OTHER, MEDICAID, SELFPAY | PROVIDERS: Family Provider Family Medicine; PCP Family Medicine; Referring Provider Family Medicine; Visit Provider Family Medicine | DX: E10.621 Type 1 diabetes mellitus with foot ulcer (principal); L97.421 Non-pressure chronic ulcer of left heel and midfoot limited to breakdown of skin; E10.40 Type 1 diabetes mellitus with diabetic neuropathy, unspecified | CPT/HCPCS: 97597; 99213 ==

== ENCOUNTER → 2021-03-17 10:14 | Outpatient (CLI) | payer OTHER, MEDICAID, SELFPAY | PROVIDERS: Family Provider Family Medicine; PCP Family Medicine; Referring Provider Family Medicine; Visit Provider Family Medicine | DX: E10.621 Type 1 diabetes mellitus with foot ulcer (principal); L97.421 Non-pressure chronic ulcer of left heel and midfoot limited to breakdown of skin; E10.40 Type 1 diabetes mellitus with diabetic neuropathy, unspecified; Z89.422 Acquired absence of other left toe(s) | CPT/HCPCS: 99212; 99213 ==

== ENCOUNTER → 2021-03-24 08:25 | Outpatient (CLI) | payer OTHER, MEDICAID, SELFPAY | PROVIDERS: Family Provider Family Medicine; PCP Family Medicine; Referring Provider Family Medicine; Visit Provider Family Medicine | DX: E10.621 Type 1 diabetes mellitus with foot ulcer (principal); L97.421 Non-pressure chronic ulcer of left heel and midfoot limited to breakdown of skin; E10.40 Type 1 diabetes mellitus with diabetic neuropathy, unspecified; L08.9 Local infection of the skin and subcutaneous tissue, unspecified | CPT/HCPCS: 87070; 87077; 87147; 87186; 87205; 97597; 99213; 99214 ==

== ENCOUNTER → 2021-03-31 08:58 | Outpatient (CLI) | payer OTHER, MEDICAID, SELFPAY | PROVIDERS: Family Provider Family Medicine; PCP Family Medicine; Referring Provider Family Medicine; Visit Provider Family Medicine | DX: E10.621 Type 1 diabetes mellitus with foot ulcer (principal); L97.421 Non-pressure chronic ulcer of left heel and midfoot limited to breakdown of skin; E10.40 Type 1 diabetes mellitus with diabetic neuropathy, unspecified; B95.7 Other staphylococcus as the cause of diseases classified elsewhere | CPT/HCPCS: 97597; 99213 ==

== ENCOUNTER → 2021-04-07 10:47 | Outpatient (CLI) | payer OTHER, MEDICAID, SELFPAY | PROVIDERS: Family Provider Family Medicine; PCP Family Medicine; Referring Provider Family Medicine; Visit Provider Family Medicine | DX: E10.621 Type 1 diabetes mellitus with foot ulcer (principal); L97.421 Non-pressure chronic ulcer of left heel and midfoot limited to breakdown of skin; E10.40 Type 1 diabetes mellitus with diabetic neuropathy, unspecified | CPT/HCPCS: 29445 ==

== ENCOUNTER → 2021-04-13 08:37 | Outpatient (CLI) | payer OTHER, MEDICAID, SELFPAY | PROVIDERS: Family Provider Family Medicine; PCP Family Medicine; Referring Provider Family Medicine; Visit Provider Family Medicine | DX: E10.621 Type 1 diabetes mellitus with foot ulcer (principal); L97.421 Non-pressure chronic ulcer of left heel and midfoot limited to breakdown of skin; E10.40 Type 1 diabetes mellitus with diabetic neuropathy, unspecified; R20.8 Other disturbances of skin sensation | CPT/HCPCS: 87070; 87077; 87186; 87205; 97597; 99213 ==

== ENCOUNTER → 2021-04-20 08:31 | Outpatient (CLI) | payer OTHER, MEDICAID, SELFPAY | PROVIDERS: Family Provider Family Medicine; PCP Family Medicine; Referring Provider Family Medicine; Visit Provider Family Medicine | DX: E10.621 Type 1 diabetes mellitus with foot ulcer (principal); L97.421 Non-pressure chronic ulcer of left heel and midfoot limited to breakdown of skin; E10.40 Type 1 diabetes mellitus with diabetic neuropathy, unspecified; B95.7 Other staphylococcus as the cause of diseases classified elsewhere | CPT/HCPCS: 29445; 99213 ==

== ENCOUNTER → 2021-04-27 09:28 | Outpatient (CLI) | payer OTHER, MEDICAID, SELFPAY | PROVIDERS: Family Provider Family Medicine; PCP Family Medicine; Referring Provider Family Medicine; Visit Provider Family Medicine | DX: E10.621 Type 1 diabetes mellitus with foot ulcer (principal); L97.421 Non-pressure chronic ulcer of left heel and midfoot limited to breakdown of skin; E10.40 Type 1 diabetes mellitus with diabetic neuropathy, unspecified; L84 Corns and callosities | CPT/HCPCS: 97597 ==

== ENCOUNTER → 2021-05-04 08:56 | Outpatient (CLI) | payer OTHER, MEDICAID, SELFPAY | PROVIDERS: Family Provider Family Medicine; PCP Family Medicine; Referring Provider Family Medicine; Visit Provider Family Medicine | DX: E10.621 Type 1 diabetes mellitus with foot ulcer (principal); L97.421 Non-pressure chronic ulcer of left heel and midfoot limited to breakdown of skin; E10.40 Type 1 diabetes mellitus with diabetic neuropathy, unspecified | CPT/HCPCS: 15275; Q4137 ==

== ENCOUNTER → 2021-05-11 08:35 | Outpatient (CLI) | payer OTHER, MEDICAID, SELFPAY | PROVIDERS: Family Provider Family Medicine; PCP Family Medicine; Referring Provider Family Medicine; Visit Provider Family Medicine | DX: E10.621 Type 1 diabetes mellitus with foot ulcer (principal); L97.421 Non-pressure chronic ulcer of left heel and midfoot limited to breakdown of skin; E10.40 Type 1 diabetes mellitus with diabetic neuropathy, unspecified | CPT/HCPCS: 15275; Q4137 ==

== ENCOUNTER → 2021-05-18 08:37 | Outpatient (CLI) | payer OTHER, MEDICAID, SELFPAY | PROVIDERS: Family Provider Family Medicine; PCP Family Medicine; Referring Provider Family Medicine; Visit Provider Family Medicine | DX: E10.621 Type 1 diabetes mellitus with foot ulcer (principal); L97.421 Non-pressure chronic ulcer of left heel and midfoot limited to breakdown of skin; E10.40 Type 1 diabetes mellitus with diabetic neuropathy, unspecified | CPT/HCPCS: 15275; 99213; Q4137 ==

== ENCOUNTER → 2021-05-25 09:25 | Outpatient (CLI) | payer OTHER, MEDICAID, SELFPAY | PROVIDERS: Family Provider Family Medicine; PCP Family Medicine; Referring Provider Family Medicine; Visit Provider Family Medicine | DX: E10.40 Type 1 diabetes mellitus with diabetic neuropathy, unspecified (principal) | CPT/HCPCS: 99212; 99213 ==

== ENCOUNTER → 2021-06-01 09:00 | Outpatient (CLI) | payer OTHER, MEDICAID, SELFPAY | PROVIDERS: Family Provider Family Medicine; PCP Family Medicine; Referring Provider Family Medicine; Visit Provider Family Medicine | DX: E10.40 Type 1 diabetes mellitus with diabetic neuropathy, unspecified (principal); L97.421 Non-pressure chronic ulcer of left heel and midfoot limited to breakdown of skin; L97.522 Non-pressure chronic ulcer of other part of left foot with fat layer exposed | CPT/HCPCS: 97597; 99214 ==

== ENCOUNTER → 2021-06-08 10:59 | Outpatient (CLI) | payer OTHER, MEDICAID, SELFPAY | PROVIDERS: Family Provider Family Medicine; PCP Family Medicine; Referring Provider Family Medicine; Visit Provider Family Medicine | DX: E10.40 Type 1 diabetes mellitus with diabetic neuropathy, unspecified (principal); L97.421 Non-pressure chronic ulcer of left heel and midfoot limited to breakdown of skin | CPT/HCPCS: 99212 ==

== ENCOUNTER → 2021-06-22 09:38 | Outpatient (CLI) | payer OTHER, MEDICAID, SELFPAY | PROVIDERS: Family Provider Family Medicine; PCP Family Medicine; Referring Provider Family Medicine; Visit Provider Family Medicine | DX: E10.621 Type 1 diabetes mellitus with foot ulcer (principal) | CPT/HCPCS: 99212; 99214 ==

== ENCOUNTER → 2021-07-06 10:00 | Outpatient (CLI) | payer OTHER, MEDICAID, SELFPAY | PROVIDERS: Family Provider Family Medicine; PCP Family Medicine; Referring Provider Family Medicine; Visit Provider Family Medicine | DX: E10.40 Type 1 diabetes mellitus with diabetic neuropathy, unspecified (principal); Z89.422 Acquired absence of other left toe(s); Z89.421 Acquired absence of other right toe(s); Z87.2 Personal history of diseases of the skin and subcutaneous tissue | CPT/HCPCS: 99212 ==